=== PATIENT | female | born 1945 | race Caucasian/White ===

== ENCOUNTER 2018-03-30 18:15 | Inpatient (IN) | payer MEDICARE, BC ==
[~2018-03-30] VITALS: Ht 162.6 cm; Wt 108.9 kg
--- NOTE | ~2018-03-30 | RHP ---
PATIENT: MILTON MENDOZA MEDICAL RECORD: [id number] ACCOUNT: [id number] LOCATION:[id number] : 49 ADMISSION DATE: 03/30/18 REHABILITATION HISTORY AND PHYSICAL EXAMINATION POST ADMISSION PHYSICIAN EXAMINATION DATE OF ADMISSION: 03/30/2018. ADMITTING DIAGNOSIS: Disuse myopathy HISTORY OF PRESENT ILLNESS: The patient is a 73-year-old female patient admitted to the rehab with a working diagnosis of disuse myopathy. She had hip surgery in November, has had continued complications from that surgery, had been in and out of SNF. Most recently, she had a right thigh abscess that was recurring, required I&D on 02/25/2018 by orthopedics and was found to be E. coli faecalis upon bacterial growth and she needs to be on 6 weeks of IV antibiotics. She has been at [facility] long-term care unit since 03/05/2018 on IV antibiotics. She has had a prolonged hospital stay. She has progressed with physical therapy and is currently ambulating 30 feet with use of a rolling walker and was ready for discharge in the LTAC. She has proximal muscle weakness with difficulty arising from bed to chair. She lives at home, was independent with her mobility and ADLs. She is currently set up for max assist for ADLs and mod assist to total assist for mobility. She plans to discharge home from acute inpatient rehab and get back to her prior level of function if possible. COMORBIDITIES: Include a polymicrobial infection to the right thigh, diabetes, paroxysmal atrial fib, hypothyroidism, morbid obesity with a BMI greater than 40, acute kidney injury, chronic kidney disease stage IV, chronic anemia, hyperkalemia, debility, weakness, proteinuria, near syncope, psoriasis, essential hypertension, dizziness, and edema. PAST MEDICAL HISTORY: Significant for anxiety, arthritis, claustrophobia, chronic renal insufficiency, depression, diabetes, gastroesophageal reflux disease, gout, migraines, hypertension, hyperlipidemia, hypothyroidism, latex sensitivity, and psoriasis. PAST SURGICAL HISTORY: Includes D&C times 2, hernia repair times 2, thyroid surgery times 2, tonsillectomy. She has had a partial removal of her clavicle. She has had a shoulder scope. She has had shoulder surgery and a total knee reconstruction. ALLERGIES: MORPHINE, ASPIRIN, IBUPROFEN, METOPROLOL, and METHYLATE. CURRENT MEDICATIONS: Include vitamin D 50,000 units daily, Pravachol 20 mg daily, Paxil 20 mg daily, Synthroid 50 mcg daily, enoxaparin 30 mg subq daily, Unasyn 1.5 mg q.12 hours p.r.n., Pepcid 20 mg b.i.d., low-resistant sliding scale with Humalog. She is on Cardizem 60 mg t.i.d., nystatin powder to apply topically b.i.d., ferrous sulfate 325 mg b.i.d., Ativan 0.5 mg t.i.d. She is on Haldol p.r.n. 2.5 mg q.4 hours, Benadryl 50 mg q.6 hours p.r.n. allergies. She is on hydrocortisone to apply as needed. She is on glucose replacement protocol, Zofran ODT 4 mg q.8 hours p.r.n., Colace 100 mg b.i.d., Tylenol 650 mg q.6 hours p.r.n., Narcan p.r.n., and polyethylene glycol 17 grams in 8 ounces of water. I was looking at her med rec and she actually was on IV antibiotics also, Unasyn, but she currently does not have central lines so we are going to HISTORY AND PHYSICAL [id number] MILTON MENDOZA have to get one of those put in. HABITS: No current alcohol or tobacco use. FAMILY HISTORY: Noncontributory. SOCIAL HISTORY: The patient hopes to return back home and get back to her prior level of function. REVIEW OF SYSTEMS: GENERAL: Does complain of weakness and fatigue. HEENT: Denies cold, cough, or congestion. CARDIOVASCULAR: Denies chest pain. PHYSICAL EXAMINATION: VITAL SIGNS: Stable, afebrile. GENERAL: A morbidly obese female, in no distress, alter upon exam. HEENT: Normocephalic and atraumatic. Mucosa moist. NECK: Supple. No adenopathy. LUNGS: Clear at this time. HEART: Regular rate and rhythm. ABDOMEN: Benign. EXTREMITIES: No clubbing, cyanosis or edema. She does have postop swelling, which appears normal. She does still have some redness to her thigh. NEUROLOGIC: She is slow to mentate, but answers most questions appropriately. ASSESSMENT: This is a 73-year-old female patient admitted to rehab with a working diagnosis of disuse myopathy. The patient has potential to make improvement. We instituted the following multidisciplinary therapies to include, but not limited to physical, occupational, respiratory, speech, nutritional services, prosthetics and orthotics. Given her complex medical condition and risks for more complications, rehabilitation services cannot be provided at a low level of care such as skilled nurse facility. PLAN: 1. Admit to [facility] for intensive inpatient therapy to include the following disciplines: A. Physical therapy to improve gait, all transfer skills and bed mobility to a modified independent level. B. Occupational therapy to improve activities of daily living to a modified independent level. C. Case management to assist with discharge planning and placement options. D. Nutrition to assist with nutritional needs. E. Rehabilitation nursing to assist with monitoring the patient's underlying medical conditions and to assist with any type of bowel or bladder habits. 2. The patient's current medications and medical care will be continued. 3. The patient will be placed on standard fall precautions. I am going to consult IR to go ahead and put in a PICC line to continue on her IV antibiotics and will follow up in the a.m. TRANSINT:[id number] Voice Confirmation ID: [id number] DOCUMENT ID: [id number] GEORGINA notes whether there has been none or any medical/functional change since admission: HISTORY AND PHYSICAL [id number] MILTON MENDOZA - No change since prescreen. GEORGINA attests patient continues to be appropriate for IRF: - Continues to be appropriate. SUKHI PATRICIA MD at 1852 CC: [id number] DICTATION DATE: 03/31/18 07 PORTFOLIO ASSISTANT: 03/31/18 1125 ADM IN [place] [id number] [place] [id number]
[2018-03-30 23:35] VITALS: BP 142/85; BMI 41.3
[2018-03-31] MEDS ORDERED: NALOXONE HC0.4 MG/M2 IV (04:33)
[2018-03-31] MEDS ORDERED: DULCOLAX10 MG/SUPP RC (04:35)
[2018-03-31] MEDS ORDERED: ACETAMINOPHEN325 MG PO (04:35)
[2018-03-31] MEDS ORDERED: COLACE100 MG PO (04:36)
[2018-03-31] MEDS ORDERED: ZOFRAN ODT4 MG/UDTAB PO (04:37)
[2018-03-31] MEDS ORDERED: GLUCAGEN1 MG/VIAL SC (04:38)
[2018-03-31] MEDS ORDERED: HYDROCORTISONE30 G8 TOPICAL (04:40)
[2018-03-31] MEDS ORDERED: BENADRYL50 MG PO (04:41)
[2018-03-31] MEDS ORDERED: IPRAT-ALBUT 0.5-3 ML UPD (04:42)
[2018-03-31] MEDS ORDERED: HALDOL5 MG/ML IM (04:43)
[2018-03-31] MEDS ORDERED: ATIVAN0.5 MG PO (04:44)
[2018-03-31] MEDS ORDERED: LOVENOX30 MG/0.3 SC (04:45)
[2018-03-31] MEDS ORDERED: HYDROCODON-ACE1 EAC7 PO (04:45)
[2018-03-31] MEDS ORDERED: FERROUS SULFAT325 MG PO (04:46)
[2018-03-31] MEDS ORDERED: PAXIL20 MG PO (04:47)
[2018-03-31] MEDS ORDERED: SYNTHROID50 MCG PO (04:47)
[2018-03-31] MEDS ORDERED: NYSTATIN1 PWD TOPICAL (04:48)
[2018-03-31] MEDS ORDERED: PRAVACHOL20 MG PO (04:48)
[2018-03-31] MEDS ORDERED: PEPCID20 MG PO (04:49)
[2018-03-31] MEDS ORDERED: CARDIZEM60 MG PO (04:49)
[2018-03-31] MEDS ORDERED: VITAMIN D5000 UNIT PO (04:51)
[2018-03-31] MEDS ORDERED: AMPICILLIN1.5 G/VIA2 IV (04:52)
[2018-03-31 07:08] LABS: BASOPHILS 0.2 % (0-2); EOSINOPHILS 3.3 % (0-7); HEMATOCRIT 28.6 % (36.0-48.0); HEMOGLOBIN 8.7 g/dL (12-16); IMMATURE GRANULOCYTES 0.5 % (0-5); LYMPHOCYTES 14.8 % (15-50); MCH 26.9 pg (26.0-34.0); MCHC 30.4 g/dL (31.0-37.0); MCV 88.3 fL (80.0-100.0); MEAN PLATELET VOLUME 9.5 fL (7.4-10.4); MONOCYTES 9.9 % (2-11); NEUTROPHILS 71.3 % (40-80); RBC 3.24 10x6/uL (4.00-5.40); RDW 17.3 % (11.5-14.5); WBC 10.4 10x3/uL (4.8-10.8)
[2018-03-31 07:19] LABS: PLATELET COUNT 180 10x3/uL (130-400)
[2018-03-31 07:30] LABS: ANION GAP 10.1 mmol/L (8-16); CALCIUM 9.3 mg/dL (8.5-10.1); CARBON DIOXIDE 33.1 mmol/L (21.0-32.0); CREATININE - SERUM 3.7 mg/dL (0.6-1.3); POTASSIUM - SERUM 4.2 mmol/L (3.5-5.1)
[2018-03-31 08:00] VITALS: BP 132/84
[2018-03-31 11:06] VITALS: BMI 41.2
[2018-03-31 23:09] VITALS: BP 149/85
[2018-04-01 08:13] VITALS: BP 147/78
[2018-04-01 19:00] VITALS: BP 139/86
[2018-04-02 08:00] VITALS: BP 144/79
[2018-04-02 08:32] LABS: BASOPHILS 0.2 % (0-2); EOSINOPHILS 2.4 % (0-7); HEMATOCRIT 28.9 % (36.0-48.0); HEMOGLOBIN 8.9 g/dL (12-16); IMMATURE GRANULOCYTES 0.3 % (0-5); LYMPHOCYTES 12.6 % (15-50); MCH 27.1 pg (26.0-34.0); MCHC 30.8 g/dL (31.0-37.0); MCV 88.1 fL (80.0-100.0); MEAN PLATELET VOLUME 10.1 fL (7.4-10.4); MONOCYTES 7.6 % (2-11); NEUTROPHILS 76.9 % (40-80); RBC 3.28 10x6/uL (4.00-5.40); RDW 17.4 % (11.5-14.5); WBC 12.4 10x3/uL (4.8-10.8)
[2018-04-02 08:33] LABS: PLATELET COUNT 231 10x3/uL (130-400)
[2018-04-02 14:28] LABS: ANION GAP 12.4 mmol/L (8-16); CALCIUM 9.2 mg/dL (8.5-10.1); CARBON DIOXIDE 31.8 mmol/L (21.0-32.0); CREATININE - SERUM 3.5 mg/dL (0.6-1.3); POTASSIUM - SERUM 4.2 mmol/L (3.5-5.1)
[2018-04-02 20:00] VITALS: BP 132/81
[2018-04-03 08:00] VITALS: BP 129/76
[2018-04-03 22:18] VITALS: BP 148/83
[2018-04-04 06:33] LABS: BASOPHILS 0.1 % (0-2); HEMOGLOBIN 8.8 g/dL (12-16); IMMATURE GRANULOCYTES 0.3 % (0-5); LYMPHOCYTES 10.9 % (15-50); MCH 26.8 pg (26.0-34.0); MCHC 30.3 g/dL (31.0-37.0); MCV 88.4 fL (80.0-100.0); MEAN PLATELET VOLUME 9.4 fL (7.4-10.4); MONOCYTES 8.5 % (2-11); NEUTROPHILS 77.2 % (40-80); PLATELET COUNT 238 10x3/uL (130-400); RBC 3.28 10x6/uL (4.00-5.40); RDW 17.5 % (11.5-14.5); WBC 13.6 10x3/uL (4.8-10.8)
[2018-04-04 06:58] LABS: ANION GAP 15.5 mmol/L (8-16); CALCIUM 8.7 mg/dL (8.5-10.1); CARBON DIOXIDE 29.1 mmol/L (21.0-32.0); CREATININE - SERUM 3.5 mg/dL (0.6-1.3); POTASSIUM - SERUM 4.6 mmol/L (3.5-5.1)
[2018-04-04 08:00] VITALS: BP 129/79
[2018-04-04 19:00] VITALS: BP 170/118
[2018-04-05 08:07] VITALS: BP 158/102
[2018-04-05 19:00] VITALS: BP 122/78
[2018-04-06 07:29] LABS: BASOPHILS 0.1 % (0-2); EOSINOPHILS 3.4 % (0-7); HEMOGLOBIN 8.9 g/dL (12-16); IMMATURE GRANULOCYTES 0.3 % (0-5); LYMPHOCYTES 11.8 % (15-50); MCHC 30.7 g/dL (31.0-37.0); MCV 87.9 fL (80.0-100.0); MEAN PLATELET VOLUME 9.9 fL (7.4-10.4); MONOCYTES 7.2 % (2-11); NEUTROPHILS 77.2 % (40-80); PLATELET COUNT 264 10x3/uL (130-400); RDW 17.9 % (11.5-14.5); WBC 11.7 10x3/uL (4.8-10.8)
[2018-04-06 07:41] LABS: ANION GAP 15.7 mmol/L (8-16); CALCIUM 9.2 mg/dL (8.5-10.1); CREATININE - SERUM 3.3 mg/dL (0.6-1.3); POTASSIUM - SERUM 4.7 mmol/L (3.5-5.1)
[2018-04-06 08:20] VITALS: BP 161/95
[2018-04-06 19:00] VITALS: BP 142/84
[2018-04-07 07:59] VITALS: BP 145/86
[2018-04-07 19:00] VITALS: BP 156/101
[2018-04-08 06:19] LABS: BASOPHILS 0.2 % (0-2); EOSINOPHILS 2.8 % (0-7); HEMATOCRIT 27.4 % (36.0-48.0); HEMOGLOBIN 8.3 g/dL (12-16); IMMATURE GRANULOCYTES 0.3 % (0-5); LYMPHOCYTES 10.8 % (15-50); MCH 26.9 pg (26.0-34.0); MCHC 30.3 g/dL (31.0-37.0); MCV 88.7 fL (80.0-100.0); MEAN PLATELET VOLUME 9.9 fL (7.4-10.4); MONOCYTES 7.5 % (2-11); NEUTROPHILS 78.4 % (40-80); PLATELET COUNT 232 10x3/uL (130-400); RBC 3.09 10x6/uL (4.00-5.40); WBC 11.7 10x3/uL (4.8-10.8)
[2018-04-08 06:32] LABS: ANION GAP 14.7 mmol/L (8-16); CALCIUM 8.9 mg/dL (8.5-10.1); CARBON DIOXIDE 25.9 mmol/L (21.0-32.0); CREATININE - SERUM 3.6 mg/dL (0.6-1.3); POTASSIUM - SERUM 4.6 mmol/L (3.5-5.1)
[2018-04-08 08:36] VITALS: BP 139/109
[2018-04-09 08:00] VITALS: BP 151/96
[2018-04-10 00:54] VITALS: BP 155/100
[2018-04-10 07:58] VITALS: BP 140/105
[2018-04-10 20:40] VITALS: BP 158/97
[2018-04-11 05:50] LABS: BASOPHILS 0.2 % (0-2); EOSINOPHILS 2.1 % (0-7); HEMATOCRIT 28.8 % (36.0-48.0); HEMOGLOBIN 8.9 g/dL (12-16); IMMATURE GRANULOCYTES 0.3 % (0-5); LYMPHOCYTES 11.1 % (15-50); MCH 27.4 pg (26.0-34.0); MCHC 30.9 g/dL (31.0-37.0); MCV 88.6 fL (80.0-100.0); MEAN PLATELET VOLUME 9.8 fL (7.4-10.4); MONOCYTES 8.9 % (2-11); NEUTROPHILS 77.4 % (40-80); PLATELET COUNT 198 10x3/uL (130-400); RBC 3.25 10x6/uL (4.00-5.40); RDW 18.5 % (11.5-14.5); WBC 11.7 10x3/uL (4.8-10.8)
[2018-04-11 06:01] LABS: ANION GAP 15.4 mmol/L (8-16); CALCIUM 8.9 mg/dL (8.5-10.1); CARBON DIOXIDE 26.1 mmol/L (21.0-32.0); CREATININE - SERUM 3.5 mg/dL (0.6-1.3); POTASSIUM - SERUM 4.5 mmol/L (3.5-5.1)
[2018-04-11 07:45] VITALS: BP 161/101
[2018-04-11 13:02] VITALS: Ht 162.6 cm; Wt 108.9 kg
[2018-04-11 16:46] LABS: APPEARANCE CLEAR (CLEAR); BILIRUBIN NEGATIVE (NEGATIVE); COLOR YELLOW (YELLOW); GLUCOSE NEGATIVE (NEGATIVE); KETONE NEGATIVE (NEGATIVE); NITRITE NEGATIVE (NEGATIVE); PROTEIN 1+ mg/dL (NEGATIVE); SPECIFIC GRAVITY 1.015 (1.005-1.020); UROBILINOGEN NORMAL (NORMAL)
[2018-04-11 19:00] VITALS: BP 145/83
[2018-04-12 06:58] LABS: ANION GAP 15.3 mmol/L (8-16); CARBON DIOXIDE 25.5 mmol/L (21.0-32.0); CREATININE - SERUM 3.3 mg/dL (0.6-1.3); POTASSIUM - SERUM 4.8 mmol/L (3.5-5.1)
[2018-04-12 08:05] VITALS: BP 161/105
[2018-04-12 19:00] VITALS: BP 175/113
[2018-04-13 08:21] VITALS: BP 143/86
== END 2018-04-13 16:48 | disposition home health service (06) | DRG 92 ==
LOC: D.REHAB 18:15
PROVIDERS: Emergency Medicine; Internal Medicine Nephrology
DX: G72.89 Other specified myopathies (principal); N18.4 Chronic kidney disease, stage 4 (severe); N17.9 Acute kidney failure, unspecified; Z68.41 Body mass index [BMI] 40.0-44.9, adult; E11.22 Type 2 diabetes mellitus with diabetic chronic kidney disease; I12.9 Hypertensive chronic kidney disease with stage 1 through stage 4 chronic kidney disease, or unspecified chronic kidney disease; Z79.4 Long term (current) use of insulin; B99.8 Other infectious disease; I48.0 Paroxysmal atrial fibrillation; E03.9 Hypothyroidism, unspecified; E66.01 Morbid (severe) obesity due to excess calories; D64.9 Anemia, unspecified; E87.5 Hyperkalemia; R53.81 Other malaise; R53.1 Weakness; R80.9 Proteinuria, unspecified; R55 Syncope and collapse; L40.9 Psoriasis, unspecified; R42 Dizziness and giddiness; R60.9 Edema, unspecified; K21.9 Gastro-esophageal reflux disease without esophagitis; E11.65 Type 2 diabetes mellitus with hyperglycemia

== ENCOUNTER → 2019-05-19 21:08 | Outpatient (CLI) | payer MEDICARE ==
[2018-04-11 13:02] VITALS: BMI 41.2
[~2019-05-19 21:08] MED LIST: ACETAMINOPHEN325 MG PO; AMPICILLIN1.5 G/VIA2 IV; ATIVAN0.5 MG PO; BENADRYL50 MG PO; CARDIZEM60 MG PO; COLACE100 MG PO; DULCOLAX10 MG/SUPP RC; FERROUS SULFAT325 MG PO; GLUCAGEN1 MG/VIAL SC; HALDOL5 MG/ML IM; HYDROCODON-ACE1 EAC7 PO; HYDROCORTISONE30 G8 TOPICAL; IPRAT-ALBUT 0.5-3 ML UPD; LOVENOX30 MG/0.3 SC; NALOXONE HC0.4 MG/M2 IV; NYSTATIN1 PWD TOPICAL; PAXIL20 MG PO; PEPCID20 MG PO; PRAVACHOL20 MG PO; SYNTHROID50 MCG PO; VITAMIN D5000 UNIT PO; ZOFRAN ODT4 MG/UDTAB PO
[2019-05-19 21:45] LABS: INR 1.29 (0.85-1.17); PROTIME 15.6 SECONDS (11.6-15.0)
== END | disposition home or self-care (01) ==
LOC: D.LABREF 21:08
PROVIDERS: ATTEND Pediatrics
DX: I48.1 Persistent atrial fibrillation (principal)